=== PATIENT | female | born 1945 | race Caucasian/White ===

== ENCOUNTER 2021-04-17 08:55 | Inpatient (IN) | payer MEDICARE, MEDICAID ==
[2021-04-09 16:04] LABS: BASOPHILS # (AUTO) 0.1 X10'3 (0-0.2); BASOPHILS % (AUTO) 0.9 % (0-1); EOSINOPHILS # (AUTO) 0.8 X10'3 (0-0.9); EOSINOPHILS % (AUTO) 11.3 % (0-6); LYMPHOCYTES # (AUTO) 1.8 X10'3 (1.1-4.8); LYMPHOCYTES % (AUTO) 24.7 % (21-51); MEAN CORPUSCULAR HEMOGLOBIN 29.3 PG (27.0-31.0); MEAN CORPUSCULAR HGB CONC 32.6 g/dL (33.0-36.5); MEAN PLATELET VOLUME 7.4 FL (7.4-10.4); MONOCYTES # (AUTO) 0.5 X10'3 (0-0.9); MONOCYTES % (AUTO) 6.2 % (2-12); NEUTROPHILS # (AUTO) 4.2 X10'3 (1.8-7.7); NEUTROPHILS % (AUTO) 56.9 % (42-75); PRE OP HEMATOCRIT 45.1 % (35.0-45.0); PRE OP HEMOGLOBIN 14.7 g/dL (12.0-16.0); PRE OP PLATELET COUNT 307 X10'3 (140-440); RED BLOOD COUNT 5.01 X10'6 (4.20-5.60); RED CELL DISTRIBUTION WIDTH 13.9 % (11.5-14.5)
[2021-04-09 16:18] LABS: PRE OP INR 1.1 INR; PRE OP PROTIME 10.9 SECONDS (9.0-12.0)
[2021-04-09 16:27] LABS: ALBUMIN 3.9 G/DL (3.4-5.0); ALBUMIN/GLOBULIN RATIO 1.3 (1.1-1.5); ALKALINE PHOSPHATASE 116 IU/L (46-116); BLOOD UREA NITROGEN 14 MG/DL (7-18); BUN/CREATININE RATIO 12.6 (6.6-38.0); CALCIUM 9.1 MG/DL (8.5-10.1); CHLORIDE 106 MMOL/L (99-107); CREATININE 1.11 MG/DL (0.40-0.90); PRE OP ALT 26 U/L (30-65); PRE OP ANION GAP 9 (8-16); PRE OP AST 18 U/L (10-37); PRE OP BILIRUB, TOTAL 0.6 MG/DL (0.0-1.0); PRE OP GLUCOSE 94 MG/DL (70-104); PRE OP POTASSIUM 4.2 MMOL/L (3.4-5.1); PRE OP SODIUM 145 MMOL/L (135-145); TOTAL PROTEIN 6.8 G/DL (6.4-8.2); eGFR 48 ML/MIN
[~2021-04-17] VITALS: Ht 154.9 cm; Wt 99.1 kg
[2021-04-17] VITALS (11 sets, daily range): BP systolic 92–127; BP diastolic 53–89
[~2021-04-17 08:55] MED LIST: APIX5TAB3 PO; ATOR40TA PO; BUPIVACAINE liposomal/PF 13.3 MG/ML vial IM ONE; BUPIVAcaine 0.5% inj/PF 30 ML ONE; DULO-31 PO; OMEP20TA5 PO; POTA-188 PO; ROPI1TAB6 PO; SUCR1TAB PO; cefazolin/dext.iso 2gm/50ml IV ONE; famotidine 20mg tablet PO ONE; ringers solution, lacted 1,000 ML IV SCH; tranexamic acid inj. 1,000 MG in 0.7% saline 100 ML PMX IV ONE; vancomycin 1,500 MG in NS 300ml IV soln IV ONE
[2021-04-17] MEDS ORDERED: fentaNYL /PF 50mcg/ml 5ml ampule ONE (11:18)
[2021-04-17] MEDS ORDERED: ePHEDrine 50MG/ML INJ. ONE (11:49)
[2021-04-17] MEDS ORDERED: rocuronium 10mg/ml inj IV ONE (11:49)
[2021-04-17] MEDS ORDERED: LIDOcaine 2% (20mg/ml) 5ml vial ONE (11:50)
[2021-04-17] MEDS ORDERED: ondansetron/PF 4mg/2ml inj ONE (11:50)
[2021-04-17] MEDS ORDERED: propofol inj 20 ML IV ONE (11:50)
[2021-04-17] MEDS ORDERED: Thrombin (Bovine) 5,000 unit vial TP ONE (12:10)
[2021-04-17] MEDS ORDERED: vancomycin 1,000mg inj ONE (12:10)
[2021-04-17] MEDS ORDERED: acetaminophen 1,000mg/100ml IV 100 ML IV ONE (12:17)
[2021-04-17] MEDS ORDERED: ringers solution, lacted 1,000 ML IV SCH (12:25)
[2021-04-17] MEDS ORDERED: ondansetron/PF 4mg/2ml inj IV PRN ×2 (12:25→14:00)
[2021-04-17] MEDS ORDERED: hydrALAZINE 20mg/ml inj. IV PRN (12:25)
[2021-04-17] MEDS ORDERED: morphine 4 MG/ML inj SYRINge IV PRN (12:25)
[2021-04-17] MEDS ORDERED: morphine 2 MG/ML inj. syringe IV PRN (12:25)
[2021-04-17] MEDS ORDERED: labetalol 20mg/4ml (5mg/ml) syringe IV PRN (12:25)
[2021-04-17] MEDS ORDERED: fentaNYL/PF 50MCG/1 ML 2ML syringe IV PRN ×2 (12:25)
--- NOTE | 2021-04-17 13:50 | NUR ---
Received from OR via [facility] IN STABLE CONDITION , accompanied by Anesthesiologist and BOOM PUMP OPERATOR report given by BOOM PUMP OPERATOR AND Anesthesiolgist. Addendum: 04/17/21 at 1425 by Jessika Crump RN Amended: Links added.
[2021-04-17] MEDS ORDERED: HYDROcodone/acetaminophen 10/325mg tab PO PRN (14:00)
[2021-04-17] MEDS ORDERED: magnesium hydroxide 30ml (MOM) UD suspension PO PRN (14:00)
[2021-04-17] MEDS ORDERED: diphenhydrAMINE 25mg capsule PO PRN ×2 (14:00)
[2021-04-17] MEDS ORDERED: HYDROmorphone 1 mg/ml syringe IV PRN (14:00)
[2021-04-17] MEDS ORDERED: acetaminophen 325mg tablet PO PRN (14:00)
[2021-04-17] MEDS ORDERED: HYDROmorphone inj. 0.5 MG/0.5 ML DISP.SYRIN IV PRN (14:00)
[2021-04-17] MEDS ORDERED: bisacodyl 10mg suppository rectal RC PRN (14:00)
--- NOTE | 2021-04-17 15:50 | NUR ---
PATIENT DISCHARGED FROM PACU IN STABLE CONDITION AFTER REPORT GIVEN TO RN TAKING OVER PATIENTS CARE. PATIENT TRANSPORTED TO ROOM 350B VIA BED WITH RNX2. Addendum: 04/17/21 at 1637 by Jessika Crump RN Amended: Links added.
--- NOTE | 2021-04-17 16:07 | NUR ---
Pt. transferred to room 350A. Report given by Student with RN nearby. No working IV at arrival to floor. Pt. on 2L 02. Put on post-op VS. VS WNL at this time. Pt. c/o of thirst. Water and juice provided. No pain at this time. No s/sx bleeding noted. EVONNE dressing and sling to R shoulder.
[2021-04-17] MEDS: ceFAZolin/D5W- 1GM premix 50 ML IV SCH (17:35)
[2021-04-17] MEDS: sucralfate 1 gm tablet PO SCH ×2 (17:35→20:20)
[2021-04-17] MEDS: HYDROcodone/acetaminophen 10/325mg tab PO PRN (17:35)
[2021-04-17] MEDS: potassium Cl 20mEq in NS 1,000 ML IV SCH (17:35)
--- NOTE | 2021-04-17 17:37 | NUR ---
Dr. Bolton rounded on his pt. States will probably DC in AM after block has completely worn off.
--- NOTE | 2021-04-17 18:20 | NUR ---
Gave report to Juan Pablo MARTINO.
[2021-04-17] MEDS ORDERED: VANCOMYCIN 1GM/200ML IVPB 200 ML IV SCH (20:00)
[2021-04-17] MEDS: potassium chloride 10mEq ER tablet PO SCH (20:21)
[2021-04-17] MEDS: ROPINIRole 1mg tablet PO SCH (20:22)
[2021-04-17] MEDS: sennosides 8.6mg tablet PO SCH (20:22)
[2021-04-18] MEDS: ceFAZolin/D5W- 1GM premix 50 ML IV SCH (00:56)
[2021-04-18] MEDS: potassium Cl 20mEq in NS 1,000 ML IV SCH ×2 (03:50→16:40)
[2021-04-18 05:08] VITALS: BP 90/55
[2021-04-18 06:15] LABS: BASOPHILS % (AUTO) 0.2 % (0-1); EOSINOPHILS % (AUTO) 0 % (0-6); HEMATOCRIT 30.5 % (35.0-45.0); HEMOGLOBIN 10.1 g/dl (12.0-16.0); LYMPHOCYTES # (AUTO) 0.7 X10'3 (1.1-4.8); LYMPHOCYTES % (AUTO) 9.8 % (21-51); MEAN CORPUSCULAR HEMOGLOBIN 29.6 PG (27.0-31.0); MEAN CORPUSCULAR HGB CONC 33.1 g/dL (33.0-36.5); MEAN CORPUSCULAR VOLUME 89.6 FL (78-98); MEAN PLATELET VOLUME 7.4 FL (7.4-10.4); MONOCYTES # (AUTO) 0.4 X10'3 (0-0.9); MONOCYTES % (AUTO) 5.7 % (2-12); NEUTROPHILS # (AUTO) 6.5 X10'3 (1.8-7.7); NEUTROPHILS % (AUTO) 84.3 % (42-75); PLATELET COUNT 217 X10'3 (140-440); RED BLOOD COUNT 3.41 X10'6 (4.20-5.60); RED CELL DISTRIBUTION WIDTH 13.5 % (11.5-14.5); WHITE BLOOD COUNT 7.7 X10'3 (4.5-11.0)
--- NOTE | 2021-04-18 06:33 | NUR ---
REPORT GIVEN TO TRUNG MARTINO.
[2021-04-18 06:38] LABS: ALANINE AMINOTRANSFERASE 13 U/L (12-78); ALBUMIN 2.7 G/DL (3.4-5.0); ALBUMIN/GLOBULIN RATIO 0.9 (1.1-1.5); ALKALINE PHOSPHATASE 69 IU/L (46-116); ANION GAP 7 (8-16); ASPARTATE AMINO TRANSFERASE 19 U/L (10-37); BILIRUBIN,TOTAL 0.6 MG/DL (0.1-1.0); BLOOD UREA NITROGEN 13 MG/DL (7-18); BUN/CREATININE RATIO 12.3 (6.6-38.0); CALCIUM 8.2 MG/DL (8.5-10.1); CHLORIDE 108 MMOL/L (99-107); CREATININE 1.06 MG/DL (0.40-0.90); GLUCOSE 121 MG/DL (70-104); POTASSIUM 4.5 MMOL/L (3.5-5.1); SODIUM 141 MMOL/L (135-145); TOTAL CARBON DIOXIDE 25.9 MMOL/L (24-32); TOTAL PROTEIN 5.7 G/DL (6.4-8.2); eGFR 51 ML/MIN
--- NOTE | 2021-04-18 06:45 | NUR ---
Patient in room [facility] 350. I have received report from Juan Pablo Davis and had the opportunity to ask questions and assume patient care.
[2021-04-18] MEDS: potassium chloride 10mEq ER tablet PO SCH ×2 (07:33→20:30)
[2021-04-18] MEDS: duloxetine 30mg CAPSULE.DR PO SCH (07:33)
[2021-04-18] MEDS: sucralfate 1 gm tablet PO SCH ×4 (07:34→20:33)
[2021-04-18] MEDS: pantoprazole 40mg Tablet.DR PO SCH (07:34)
[2021-04-18 08:00] VITALS: BP 113/81
[2021-04-18] MEDS: ROPINIRole 1mg tablet PO SCH ×2 (08:00→20:30)
[2021-04-18 11:00] VITALS: BP 83/51
[2021-04-18] MEDS ORDERED: HYDR-3972 PO (13:18)
[2021-04-18] MEDS: HYDROcodone/acetaminophen 10/325mg tab PO PRN (17:35)
[2021-04-18 18:00] VITALS: BP 94/51
--- NOTE | 2021-04-18 18:16 | NUR ---
Problems reprioritized. Patient report given, questions answered & plan of care reviewed with Juan Pablo MARTINO Traveler.
--- NOTE | 2021-04-18 18:17 | NUR ---
Patient in room [facility] 350A. I have received report from Neena MARTINO and had the opportunity to ask questions and assume patient care.
--- NOTE | 2021-04-18 18:41 | NUR ---
REPORT RECEIVED FROM TRUNG MARTINO.
[2021-04-18 19:13] VITALS: BP 77/50
[2021-04-18] MEDS: sennosides 8.6mg tablet PO SCH (20:31)
[2021-04-18] MEDS: apixaban 5mg tablet PO SCH (20:33)
[2021-04-19] VITALS: BP 114/70
[2021-04-19 01:31] VITALS: BP 114/70
--- NOTE | 2021-04-19 03:08 | NUR ---
No IV, several attempts by two different RNs, BP at midnight 114/70, encouraged to take fluids orally. We continue to monitor.
[2021-04-19] MEDS: HYDROcodone/acetaminophen 10/325mg tab PO PRN ×3 (03:21→14:17)
[2021-04-19 04:19] VITALS: BP 114/70
--- NOTE | 2021-04-19 04:40 | NUR ---
Called DR MAR AT 1825 REGARDING PT LOW BLOOD PRESSURE 77/50. LEFT MESSAGE.
[2021-04-19] MEDS: potassium Cl 20mEq in NS 1,000 ML IV SCH (05:12)
--- NOTE | 2021-04-19 06:02 | NUR ---
Student Medication Administration: For this medication-pass time frame, all medication were reviewed, dispensed, administered and documented per hospital policy by ROBERTO ROSALES.
--- NOTE | 2021-04-19 06:02 | NUR ---
Student documentation: I have reviewed and agree with all interventions, assessments performed and documented by ROBERTO ROSALES.
--- NOTE | 2021-04-19 06:18 | NUR ---
REPORT GIVEN TO LEE MARTINO.
--- NOTE | 2021-04-19 06:25 | NUR ---
Patient in room [facility] 350. I have received report from Juan Pablo, RN and student RN and had the opportunity to ask questions and assume patient care.
[2021-04-19 07:00] VITALS: BP 106/62
[2021-04-19] MEDS: sucralfate 1 gm tablet PO SCH ×2 (07:00→12:00)
[2021-04-19 07:09] LABS: BASOPHILS % (AUTO) 0.7 % (0-1); EOSINOPHILS # (AUTO) 0.1 X10'3 (0-0.9); EOSINOPHILS % (AUTO) 1.1 % (0-6); HEMATOCRIT 25.5 % (35.0-45.0); HEMOGLOBIN 8.6 g/dl (12.0-16.0); LYMPHOCYTES # (AUTO) 0.9 X10'3 (1.1-4.8); LYMPHOCYTES % (AUTO) 17.3 % (21-51); MEAN CORPUSCULAR HEMOGLOBIN 29.9 PG (27.0-31.0); MEAN CORPUSCULAR HGB CONC 33.7 g/dL (33.0-36.5); MEAN CORPUSCULAR VOLUME 88.7 FL (78-98); MEAN PLATELET VOLUME 7.5 FL (7.4-10.4); MONOCYTES # (AUTO) 0.5 X10'3 (0-0.9); NEUTROPHILS # (AUTO) 3.7 X10'3 (1.8-7.7); NEUTROPHILS % (AUTO) 71.9 % (42-75); PLATELET COUNT 172 X10'3 (140-440); RED BLOOD COUNT 2.87 X10'6 (4.20-5.60); WHITE BLOOD COUNT 5.2 X10'3 (4.5-11.0)
[2021-04-19 07:37] LABS: ALANINE AMINOTRANSFERASE 13 U/L (12-78); ALBUMIN 2.5 G/DL (3.4-5.0); ALKALINE PHOSPHATASE 63 IU/L (46-116); ANION GAP 3 (8-16); ASPARTATE AMINO TRANSFERASE 21 U/L (10-37); BILIRUBIN,TOTAL 0.4 MG/DL (0.1-1.0); BLOOD UREA NITROGEN 14 MG/DL (7-18); BUN/CREATININE RATIO 18.2 (6.6-38.0); CHLORIDE 104 MMOL/L (99-107); CREATININE 0.77 MG/DL (0.40-0.90); GLUCOSE 93 MG/DL (70-104); POTASSIUM 4.1 MMOL/L (3.5-5.1); SODIUM 132 MMOL/L (135-145); TOTAL CARBON DIOXIDE 24.6 MMOL/L (24-32); eGFR 73 ML/MIN
[2021-04-19] MEDS: ROPINIRole 1mg tablet PO SCH (08:00)
[2021-04-19] MEDS: pantoprazole 40mg Tablet.DR PO SCH (08:19)
[2021-04-19] MEDS: apixaban 5mg tablet PO SCH (08:19)
[2021-04-19] MEDS: duloxetine 30mg CAPSULE.DR PO SCH (08:19)
[2021-04-19] MEDS: potassium chloride 10mEq ER tablet PO SCH (08:20)
--- NOTE | 2021-04-19 15:21 | NUR ---
Pt discharged to home, with all belongings, in private vehicle accompanied by friend. Discharge instructions and medications reviewed. New prescription e-scripted to [facility] on [facility] in [place]. Education provided on post operative care, as well as monitoring for signs/symptoms of infection. Pt instructed to follow up with Dr Bolton on Wednesday or Wednesday, and to notify his office with any concerns. Pt states understanding and willingness to comply with all discharge instructions. Pt escorted to front lobby via wheelchair by PCT.
== END 2021-04-19 15:20 | disposition home or self-care (01) | DRG 483 ==
LOC: PAS IN 08:55 → SUR 3N 15:59
PROVIDERS: ADMIT Orthopaedic Surgery; ATTEND Orthopaedic Surgery
PROC: 3E0T3BZ Introduction of Anesthetic Agent into Peripheral Nerves and Plexi, Percutaneous Approach (ICD-10-PCS; 2021-04-17)
PROC: 0RRJ0JZ Replacement of Right Shoulder Joint with Synthetic Substitute, Open Approach (ICD-10-PCS; principal; 2021-04-17 11:18)
DX: M19.011 Primary osteoarthritis, right shoulder (principal); Z60.2 Problems related to living alone; I95.9 Hypotension, unspecified; R06.02 Shortness of breath; Z20.822 Contact with and (suspected) exposure to COVID-19
CPT/HCPCS: 36415; 80053; 82948; 85025; 85610; 85730; 86870; 86885; 86900; 86901; 86922; 87081; 97110; 97116; 97161; 97530; A4215; A4565; A4618; A6253; A7000; A9272; C1713; C1776; C9290; G0378; J0131; J0690; J2405; J2704; J3010; J3370; J3480; J3490; J7040; J7120; S0020; U0003; U0005

== ENCOUNTER 2024-12-01 11:26 | Day surgery (SDC) | payer MEDICARE, MEDICAID ==
[2024-12-01] VITALS (15 sets, daily range): BP systolic 119–142; BP diastolic 66–84; PULSE 60–80; RESP 15–23; TEMP 98.1; O2SAT 93–100
[~2024-12-01] VITALS: Ht 154.9 cm; Wt 80.2 kg
[~2024-12-01 11:26] MED LIST changes: -ATOR40TA PO; +ATOR40TA72 PO; -BUPIVACAINE liposomal/PF 13.3 MG/ML vial IM ONE; -BUPIVAcaine 0.5% inj/PF 30 ML ONE; +CHOL20002 PO; +CYAN250010 PO; +DIPH25TA23 PO; -DULO-31 PO; +DULO30CA52 PO; +FLUT16SP11 BOTHNARES; +HYDR-3686 PO; +MAGN400T39 PO; -OMEP20TA5 PO; +OMEP40CA21 PO; -ROPI1TAB6 PO; -SUCR1TAB PO; +TOPI25CA12 PO; -cefazolin/dext.iso 2gm/50ml IV ONE; -famotidine 20mg tablet PO ONE; -tranexamic acid inj. 1,000 MG in 0.7% saline 100 ML PMX IV ONE; -vancomycin 1,500 MG in NS 300ml IV soln IV ONE
--- NOTE | 2024-12-01 13:24 | ELECTROCARDIOGRAPH REPORT ---
[facility] Test Date: 2024-12-01 Test Time: 13:22:38 Pat Name: BOB ABDULLAHI Department: PRE/OP CARDIOLOGY Room: Gender: F Prop Cutter: KJ : 1945 Requested By: DIMPLE AVILES Order Number: [id number] Reading MD: Dr. MIRIAM Brady Measurements Intervals [place] Rate: 69 P: 65 TN: 169 QRS: 60 QRSD: 89 T: 23 QT: 424 QTc: 455 Interpretive Statements Sinus rhythm Multiform ventricular premature complexes Electronically Signed On 12-01-2024 18:05:[address] MIRIAM Brady Please click the below link to view image of tracing.
[2024-12-01] MEDS ORDERED: propofol inj 20 ML IV ONE (14:10)
== END 2024-12-01 16:13 | disposition home or self-care (01) ==
LOC: GI LAB 11:26
PROVIDERS: ATTEND Internal Medicine Gastroenterology
DX: R13.10 Dysphagia, unspecified (principal); I49.3 Ventricular premature depolarization; K31.A0 Gastric intestinal metaplasia, unspecified; K22.89 Other specified disease of esophagus; E78.5 Hyperlipidemia, unspecified; J44.9 Chronic obstructive pulmonary disease, unspecified; G47.30 Sleep apnea, unspecified; G62.9 Polyneuropathy, unspecified; Z87.891 Personal history of nicotine dependence; Z79.2 Long term (current) use of antibiotics; Z79.899 Other long term (current) drug therapy; Z90.49 Acquired absence of other specified parts of digestive tract; Z98.41 Cataract extraction status, right eye; Z98.42 Cataract extraction status, left eye; Z98.0 Intestinal bypass and anastomosis status
CPT/HCPCS: 43239; 82948; 93005; A4618; A4620; J2704; J7120; Z7512; Z7610